=== PATIENT | male | born 1940 | race Caucasian/White ===

== ENCOUNTER 2019-08-03 14:42 | Outpatient (CLI) | payer MEDICARE | END 2019-08-03 23:59 | disposition home or self-care (01) | LOC: WOUND 14:42 | PROVIDERS: ATTEND Internal Medicine | DX: I87.331 Chronic venous hypertension (idiopathic) with ulcer and inflammation of right lower extremity (principal); L97.212 Non-pressure chronic ulcer of right calf with fat layer exposed; L03.115 Cellulitis of right lower limb; L03.116 Cellulitis of left lower limb; R60.0 Localized edema; E03.9 Hypothyroidism, unspecified; H91.90 Unspecified hearing loss, unspecified ear; I48.91 Unspecified atrial fibrillation; E66.01 Morbid (severe) obesity due to excess calories; J96.11 Chronic respiratory failure with hypoxia; Z68.41 Body mass index [BMI] 40.0-44.9, adult; Z87.891 Personal history of nicotine dependence; Z86.718 Personal history of other venous thrombosis and embolism | CPT/HCPCS: 29581; 97597; 97598 ==

== ENCOUNTER → 2020-03-19 | Outpatient (CLI) | payer MEDICARE | END | disposition home or self-care (01) | LOC: WOUND 13:34 | PROVIDERS: ATTEND Internal Medicine | DX: I87.313 Chronic venous hypertension (idiopathic) with ulcer of bilateral lower extremity (principal); L97.822 Non-pressure chronic ulcer of other part of left lower leg with fat layer exposed; L97.812 Non-pressure chronic ulcer of other part of right lower leg with fat layer exposed; E03.9 Hypothyroidism, unspecified; E66.9 Obesity, unspecified; Z87.891 Personal history of nicotine dependence; Z68.41 Body mass index [BMI] 40.0-44.9, adult | CPT/HCPCS: 97597; 97598; G0463 ==

== ENCOUNTER 2020-03-28 14:09 | Outpatient (CLI) | payer MEDICARE | END 2020-03-28 23:59 | disposition home or self-care (01) | LOC: WOUND 14:09 | PROVIDERS: ATTEND Internal Medicine | DX: I87.313 Chronic venous hypertension (idiopathic) with ulcer of bilateral lower extremity (principal); L97.822 Non-pressure chronic ulcer of other part of left lower leg with fat layer exposed; L97.812 Non-pressure chronic ulcer of other part of right lower leg with fat layer exposed; E03.9 Hypothyroidism, unspecified; E66.9 Obesity, unspecified; Z87.891 Personal history of nicotine dependence; Z68.41 Body mass index [BMI] 40.0-44.9, adult | CPT/HCPCS: 97597; 97598 ==

== ENCOUNTER → 2020-04-04 | Outpatient (CLI) | payer MEDICARE | END | disposition home or self-care (01) | LOC: WOUND 11:08 | PROVIDERS: ATTEND Internal Medicine | DX: I87.313 Chronic venous hypertension (idiopathic) with ulcer of bilateral lower extremity (principal); L97.222 Non-pressure chronic ulcer of left calf with fat layer exposed; L97.212 Non-pressure chronic ulcer of right calf with fat layer exposed; E03.9 Hypothyroidism, unspecified; I48.91 Unspecified atrial fibrillation; E66.01 Morbid (severe) obesity due to excess calories; Z68.41 Body mass index [BMI] 40.0-44.9, adult; Z87.891 Personal history of nicotine dependence; Z86.718 Personal history of other venous thrombosis and embolism; Z79.01 Long term (current) use of anticoagulants | CPT/HCPCS: 97597; 97598 ==

== ENCOUNTER → 2020-04-11 | Outpatient (CLI) | payer MEDICARE | END | disposition home or self-care (01) | LOC: WOUND 13:02 | PROVIDERS: ATTEND Internal Medicine | DX: I87.313 Chronic venous hypertension (idiopathic) with ulcer of bilateral lower extremity (principal); L97.222 Non-pressure chronic ulcer of left calf with fat layer exposed; L97.212 Non-pressure chronic ulcer of right calf with fat layer exposed; E03.9 Hypothyroidism, unspecified; I48.91 Unspecified atrial fibrillation; E66.01 Morbid (severe) obesity due to excess calories; Z68.41 Body mass index [BMI] 40.0-44.9, adult; Z87.891 Personal history of nicotine dependence; Z86.718 Personal history of other venous thrombosis and embolism; Z79.01 Long term (current) use of anticoagulants | CPT/HCPCS: 29581; 97597; 97598 ==

== ENCOUNTER → 2020-04-17 | Outpatient (CLI) | payer MEDICARE | END | disposition home or self-care (01) | LOC: CVU 07:45 | PROVIDERS: ATTEND Internal Medicine | DX: S81.801A Unspecified open wound, right lower leg, initial encounter (principal); I70.203 Unspecified atherosclerosis of native arteries of extremities, bilateral legs; X58.XXXA Exposure to other specified factors, initial encounter; Y93.89 Activity, other specified; Y92.89 Other specified places as the place of occurrence of the external cause; Y99.8 Other external cause status | CPT/HCPCS: 93922; 93925; 93970 ==

== ENCOUNTER → 2020-04-18 | Outpatient (CLI) | payer MEDICARE | END | disposition home or self-care (01) | LOC: WOUND 12:45 | PROVIDERS: ATTEND Internal Medicine | DX: I87.313 Chronic venous hypertension (idiopathic) with ulcer of bilateral lower extremity (principal); I70.242 Atherosclerosis of native arteries of left leg with ulceration of calf; L97.222 Non-pressure chronic ulcer of left calf with fat layer exposed; I70.232 Atherosclerosis of native arteries of right leg with ulceration of calf; L97.212 Non-pressure chronic ulcer of right calf with fat layer exposed; E03.9 Hypothyroidism, unspecified; I48.91 Unspecified atrial fibrillation; E66.01 Morbid (severe) obesity due to excess calories; Z68.41 Body mass index [BMI] 40.0-44.9, adult; Z87.891 Personal history of nicotine dependence; Z86.718 Personal history of other venous thrombosis and embolism; Z79.01 Long term (current) use of anticoagulants | CPT/HCPCS: 97597; 97598 ==

== ENCOUNTER 2020-04-25 13:59 | Outpatient (CLI) | payer MEDICARE | END 2020-04-25 23:59 | disposition home or self-care (01) | LOC: WOUND 13:59 | PROVIDERS: ATTEND Internal Medicine | DX: I87.313 Chronic venous hypertension (idiopathic) with ulcer of bilateral lower extremity (principal); I70.242 Atherosclerosis of native arteries of left leg with ulceration of calf; L97.222 Non-pressure chronic ulcer of left calf with fat layer exposed; I70.232 Atherosclerosis of native arteries of right leg with ulceration of calf; L97.212 Non-pressure chronic ulcer of right calf with fat layer exposed; E03.9 Hypothyroidism, unspecified; I48.91 Unspecified atrial fibrillation; E66.01 Morbid (severe) obesity due to excess calories; Z68.41 Body mass index [BMI] 40.0-44.9, adult; Z87.891 Personal history of nicotine dependence; Z86.718 Personal history of other venous thrombosis and embolism; Z79.01 Long term (current) use of anticoagulants | CPT/HCPCS: 97597; 97598 ==

== ENCOUNTER 2020-05-02 11:03 | Outpatient (CLI) | payer MEDICARE | END 2020-05-02 23:59 | disposition home or self-care (01) | LOC: WOUND 11:03 | PROVIDERS: ATTEND Internal Medicine | DX: I87.313 Chronic venous hypertension (idiopathic) with ulcer of bilateral lower extremity (principal); I70.242 Atherosclerosis of native arteries of left leg with ulceration of calf; L97.222 Non-pressure chronic ulcer of left calf with fat layer exposed; I70.232 Atherosclerosis of native arteries of right leg with ulceration of calf; L97.212 Non-pressure chronic ulcer of right calf with fat layer exposed; E03.9 Hypothyroidism, unspecified; I48.91 Unspecified atrial fibrillation; E66.01 Morbid (severe) obesity due to excess calories; Z68.41 Body mass index [BMI] 40.0-44.9, adult; Z87.891 Personal history of nicotine dependence; Z86.718 Personal history of other venous thrombosis and embolism; Z79.01 Long term (current) use of anticoagulants | CPT/HCPCS: 97597; 97598 ==

== ENCOUNTER 2020-05-09 11:00 | Outpatient (CLI) | payer MEDICARE | END 2020-05-09 23:59 | disposition home or self-care (01) | LOC: WOUND 11:00 | PROVIDERS: ATTEND Internal Medicine | DX: I87.313 Chronic venous hypertension (idiopathic) with ulcer of bilateral lower extremity (principal); I70.242 Atherosclerosis of native arteries of left leg with ulceration of calf; L97.222 Non-pressure chronic ulcer of left calf with fat layer exposed; I70.232 Atherosclerosis of native arteries of right leg with ulceration of calf; L97.212 Non-pressure chronic ulcer of right calf with fat layer exposed; E03.9 Hypothyroidism, unspecified; I48.91 Unspecified atrial fibrillation; E66.01 Morbid (severe) obesity due to excess calories; Z68.41 Body mass index [BMI] 40.0-44.9, adult; Z87.891 Personal history of nicotine dependence; Z86.718 Personal history of other venous thrombosis and embolism; Z79.01 Long term (current) use of anticoagulants | CPT/HCPCS: 97597; 97598 ==

== ENCOUNTER → 2020-05-16 | Outpatient (CLI) | payer MEDICARE | END | disposition home or self-care (01) | LOC: WOUND 13:57 | PROVIDERS: ATTEND Internal Medicine | DX: I87.313 Chronic venous hypertension (idiopathic) with ulcer of bilateral lower extremity (principal); I70.242 Atherosclerosis of native arteries of left leg with ulceration of calf; L97.222 Non-pressure chronic ulcer of left calf with fat layer exposed; I70.232 Atherosclerosis of native arteries of right leg with ulceration of calf; L97.212 Non-pressure chronic ulcer of right calf with fat layer exposed; E03.9 Hypothyroidism, unspecified; I48.91 Unspecified atrial fibrillation; E66.01 Morbid (severe) obesity due to excess calories; Z68.41 Body mass index [BMI] 40.0-44.9, adult; Z87.891 Personal history of nicotine dependence; Z86.718 Personal history of other venous thrombosis and embolism; Z79.01 Long term (current) use of anticoagulants | CPT/HCPCS: 97597; 97598 ==

== ENCOUNTER → 2020-05-23 | Outpatient (CLI) | payer MEDICARE | END | disposition home or self-care (01) | LOC: WOUND 14:16 | PROVIDERS: ATTEND Internal Medicine | DX: I87.313 Chronic venous hypertension (idiopathic) with ulcer of bilateral lower extremity (principal); I70.242 Atherosclerosis of native arteries of left leg with ulceration of calf; L97.222 Non-pressure chronic ulcer of left calf with fat layer exposed; I70.232 Atherosclerosis of native arteries of right leg with ulceration of calf; L97.212 Non-pressure chronic ulcer of right calf with fat layer exposed; E03.9 Hypothyroidism, unspecified; I48.91 Unspecified atrial fibrillation; M62.82 Rhabdomyolysis; R09.02 Hypoxemia; E66.01 Morbid (severe) obesity due to excess calories; Z68.41 Body mass index [BMI] 40.0-44.9, adult; Z87.891 Personal history of nicotine dependence; Z86.718 Personal history of other venous thrombosis and embolism; Z79.01 Long term (current) use of anticoagulants | CPT/HCPCS: 97597; 97598 ==

== ENCOUNTER → 2020-05-30 | Outpatient (CLI) | payer MEDICARE | END | disposition home or self-care (01) | LOC: WOUND 13:48 | PROVIDERS: ATTEND Internal Medicine | DX: I87.313 Chronic venous hypertension (idiopathic) with ulcer of bilateral lower extremity (principal); I70.242 Atherosclerosis of native arteries of left leg with ulceration of calf; I70.232 Atherosclerosis of native arteries of right leg with ulceration of calf; L97.222 Non-pressure chronic ulcer of left calf with fat layer exposed; L97.212 Non-pressure chronic ulcer of right calf with fat layer exposed; E03.9 Hypothyroidism, unspecified; I48.91 Unspecified atrial fibrillation; M62.82 Rhabdomyolysis; R09.02 Hypoxemia; E66.01 Morbid (severe) obesity due to excess calories; Z68.41 Body mass index [BMI] 40.0-44.9, adult; Z87.891 Personal history of nicotine dependence; Z86.718 Personal history of other venous thrombosis and embolism; Z79.01 Long term (current) use of anticoagulants | CPT/HCPCS: 97597; 97598 ==

== ENCOUNTER → 2020-06-06 | Outpatient (CLI) | payer MEDICARE | END | disposition home or self-care (01) | LOC: WOUND 13:48 | PROVIDERS: ATTEND Internal Medicine | DX: I87.313 Chronic venous hypertension (idiopathic) with ulcer of bilateral lower extremity (principal); I70.242 Atherosclerosis of native arteries of left leg with ulceration of calf; L97.222 Non-pressure chronic ulcer of left calf with fat layer exposed; I70.232 Atherosclerosis of native arteries of right leg with ulceration of calf; L97.212 Non-pressure chronic ulcer of right calf with fat layer exposed; E03.9 Hypothyroidism, unspecified; I48.91 Unspecified atrial fibrillation; M62.82 Rhabdomyolysis; R09.02 Hypoxemia; E66.01 Morbid (severe) obesity due to excess calories; Z68.41 Body mass index [BMI] 40.0-44.9, adult; Z87.891 Personal history of nicotine dependence; Z86.718 Personal history of other venous thrombosis and embolism; Z79.01 Long term (current) use of anticoagulants | CPT/HCPCS: 97597; 97598 ==

== ENCOUNTER → 2020-06-15 | Outpatient (CLI) | payer MEDICARE | END | disposition home or self-care (01) | LOC: WOUND 11:16 | PROVIDERS: ATTEND Family Medicine | DX: I87.312 Chronic venous hypertension (idiopathic) with ulcer of left lower extremity (principal); I87.331 Chronic venous hypertension (idiopathic) with ulcer and inflammation of right lower extremity; L97.222 Non-pressure chronic ulcer of left calf with fat layer exposed; L97.212 Non-pressure chronic ulcer of right calf with fat layer exposed; E03.9 Hypothyroidism, unspecified; I48.91 Unspecified atrial fibrillation; M62.82 Rhabdomyolysis; R09.02 Hypoxemia; E66.01 Morbid (severe) obesity due to excess calories; Z68.41 Body mass index [BMI] 40.0-44.9, adult; Z87.891 Personal history of nicotine dependence; Z86.718 Personal history of other venous thrombosis and embolism; Z79.01 Long term (current) use of anticoagulants | CPT/HCPCS: 29581 ==

== ENCOUNTER → 2020-06-20 | Outpatient (CLI) | payer MEDICARE | END | disposition home or self-care (01) | LOC: WOUND 11:00 | PROVIDERS: ATTEND Internal Medicine Cardiovascular Disease | DX: I87.313 Chronic venous hypertension (idiopathic) with ulcer of bilateral lower extremity (principal); I70.242 Atherosclerosis of native arteries of left leg with ulceration of calf; L97.222 Non-pressure chronic ulcer of left calf with fat layer exposed; I70.232 Atherosclerosis of native arteries of right leg with ulceration of calf; L97.212 Non-pressure chronic ulcer of right calf with fat layer exposed; E03.9 Hypothyroidism, unspecified; I48.91 Unspecified atrial fibrillation; M62.82 Rhabdomyolysis; R09.02 Hypoxemia; E66.01 Morbid (severe) obesity due to excess calories; Z68.41 Body mass index [BMI] 40.0-44.9, adult; Z87.891 Personal history of nicotine dependence; Z86.718 Personal history of other venous thrombosis and embolism; Z79.01 Long term (current) use of anticoagulants | CPT/HCPCS: 29581 ==

== ENCOUNTER → 2020-06-27 | Outpatient (CLI) | payer MEDICARE | END | disposition home or self-care (01) | LOC: WOUND 10:59 | PROVIDERS: ATTEND Internal Medicine | DX: I87.313 Chronic venous hypertension (idiopathic) with ulcer of bilateral lower extremity (principal); I70.242 Atherosclerosis of native arteries of left leg with ulceration of calf; L97.222 Non-pressure chronic ulcer of left calf with fat layer exposed; I70.232 Atherosclerosis of native arteries of right leg with ulceration of calf; L97.212 Non-pressure chronic ulcer of right calf with fat layer exposed; E03.9 Hypothyroidism, unspecified; I48.91 Unspecified atrial fibrillation; M62.82 Rhabdomyolysis; R09.02 Hypoxemia; E66.01 Morbid (severe) obesity due to excess calories; Z68.41 Body mass index [BMI] 40.0-44.9, adult; Z87.891 Personal history of nicotine dependence; Z86.718 Personal history of other venous thrombosis and embolism; Z79.01 Long term (current) use of anticoagulants | CPT/HCPCS: 97597; 97598 ==

== ENCOUNTER → 2020-07-04 | Outpatient (CLI) | payer MEDICARE | END | disposition home or self-care (01) | LOC: WOUND 10:59 | PROVIDERS: ATTEND Internal Medicine | DX: I87.313 Chronic venous hypertension (idiopathic) with ulcer of bilateral lower extremity (principal); I70.242 Atherosclerosis of native arteries of left leg with ulceration of calf; L97.222 Non-pressure chronic ulcer of left calf with fat layer exposed; I70.232 Atherosclerosis of native arteries of right leg with ulceration of calf; L97.212 Non-pressure chronic ulcer of right calf with fat layer exposed; E03.9 Hypothyroidism, unspecified; I48.91 Unspecified atrial fibrillation; M62.82 Rhabdomyolysis; R09.02 Hypoxemia; E66.01 Morbid (severe) obesity due to excess calories; Z68.41 Body mass index [BMI] 40.0-44.9, adult; Z87.891 Personal history of nicotine dependence; Z86.718 Personal history of other venous thrombosis and embolism; Z79.01 Long term (current) use of anticoagulants | CPT/HCPCS: 97597; 97598 ==

== ENCOUNTER → 2020-07-11 | Outpatient (CLI) | payer MEDICARE | END | disposition home or self-care (01) | LOC: WOUND 14:19 | PROVIDERS: ATTEND Internal Medicine | DX: I87.313 Chronic venous hypertension (idiopathic) with ulcer of bilateral lower extremity (principal); I70.242 Atherosclerosis of native arteries of left leg with ulceration of calf; L97.222 Non-pressure chronic ulcer of left calf with fat layer exposed; I70.232 Atherosclerosis of native arteries of right leg with ulceration of calf; L97.212 Non-pressure chronic ulcer of right calf with fat layer exposed; E03.9 Hypothyroidism, unspecified; I48.91 Unspecified atrial fibrillation; M62.82 Rhabdomyolysis; R09.02 Hypoxemia; E66.01 Morbid (severe) obesity due to excess calories; Z68.41 Body mass index [BMI] 40.0-44.9, adult; Z87.891 Personal history of nicotine dependence; Z86.718 Personal history of other venous thrombosis and embolism; Z79.01 Long term (current) use of anticoagulants | CPT/HCPCS: 97597; 97598 ==

== ENCOUNTER 2020-07-18 11:02 | Outpatient (CLI) | payer MEDICARE | END 2020-07-18 23:59 | disposition home or self-care (01) | LOC: WOUND 11:02 | PROVIDERS: ATTEND Internal Medicine | DX: I87.313 Chronic venous hypertension (idiopathic) with ulcer of bilateral lower extremity (principal); I70.232 Atherosclerosis of native arteries of right leg with ulceration of calf; L97.212 Non-pressure chronic ulcer of right calf with fat layer exposed; I70.242 Atherosclerosis of native arteries of left leg with ulceration of calf; L97.222 Non-pressure chronic ulcer of left calf with fat layer exposed; E03.9 Hypothyroidism, unspecified; I48.91 Unspecified atrial fibrillation; M62.82 Rhabdomyolysis; R09.02 Hypoxemia; E66.01 Morbid (severe) obesity due to excess calories; Z68.41 Body mass index [BMI] 40.0-44.9, adult; Z87.891 Personal history of nicotine dependence; Z86.718 Personal history of other venous thrombosis and embolism; Z79.01 Long term (current) use of anticoagulants | CPT/HCPCS: 97597; 97598 ==

== ENCOUNTER → 2020-07-25 | Outpatient (CLI) | payer MEDICARE | END | disposition home or self-care (01) | LOC: WOUND 12:27 | PROVIDERS: ATTEND Internal Medicine | DX: I87.313 Chronic venous hypertension (idiopathic) with ulcer of bilateral lower extremity (principal); I70.242 Atherosclerosis of native arteries of left leg with ulceration of calf; L97.222 Non-pressure chronic ulcer of left calf with fat layer exposed; I70.232 Atherosclerosis of native arteries of right leg with ulceration of calf; L97.212 Non-pressure chronic ulcer of right calf with fat layer exposed; I48.91 Unspecified atrial fibrillation; E03.9 Hypothyroidism, unspecified; M62.82 Rhabdomyolysis; R09.02 Hypoxemia; E66.01 Morbid (severe) obesity due to excess calories; Z68.41 Body mass index [BMI] 40.0-44.9, adult; Z87.891 Personal history of nicotine dependence; Z86.718 Personal history of other venous thrombosis and embolism; Z79.01 Long term (current) use of anticoagulants | CPT/HCPCS: 97597; 97598 ==

== ENCOUNTER → 2020-08-01 | Outpatient (CLI) | payer MEDICARE | END | disposition home or self-care (01) | LOC: WOUND 14:37 | PROVIDERS: ATTEND Internal Medicine | DX: I87.331 Chronic venous hypertension (idiopathic) with ulcer and inflammation of right lower extremity (principal); I70.238 Atherosclerosis of native arteries of right leg with ulceration of other part of lower leg; L97.812 Non-pressure chronic ulcer of other part of right lower leg with fat layer exposed; I70.232 Atherosclerosis of native arteries of right leg with ulceration of calf; L97.212 Non-pressure chronic ulcer of right calf with fat layer exposed; I70.242 Atherosclerosis of native arteries of left leg with ulceration of calf; I87.312 Chronic venous hypertension (idiopathic) with ulcer of left lower extremity; L97.222 Non-pressure chronic ulcer of left calf with fat layer exposed; L03.115 Cellulitis of right lower limb; E03.9 Hypothyroidism, unspecified; I48.91 Unspecified atrial fibrillation; E66.9 Obesity, unspecified; Z68.41 Body mass index [BMI] 40.0-44.9, adult; Z87.891 Personal history of nicotine dependence; Z86.718 Personal history of other venous thrombosis and embolism; Z79.01 Long term (current) use of anticoagulants | CPT/HCPCS: 97597; 97598 ==

== ENCOUNTER → 2020-08-08 | Outpatient (CLI) | payer MEDICARE | END | disposition home or self-care (01) | LOC: WOUND 11:04 | PROVIDERS: ATTEND Internal Medicine | DX: I87.333 Chronic venous hypertension (idiopathic) with ulcer and inflammation of bilateral lower extremity (principal); I70.238 Atherosclerosis of native arteries of right leg with ulceration of other part of lower leg; L97.812 Non-pressure chronic ulcer of other part of right lower leg with fat layer exposed; I70.232 Atherosclerosis of native arteries of right leg with ulceration of calf; L97.212 Non-pressure chronic ulcer of right calf with fat layer exposed; I70.242 Atherosclerosis of native arteries of left leg with ulceration of calf; L97.222 Non-pressure chronic ulcer of left calf with fat layer exposed; L03.115 Cellulitis of right lower limb; E03.9 Hypothyroidism, unspecified; I48.91 Unspecified atrial fibrillation; M62.82 Rhabdomyolysis; E66.01 Morbid (severe) obesity due to excess calories; Z68.41 Body mass index [BMI] 40.0-44.9, adult; Z87.891 Personal history of nicotine dependence; Z86.718 Personal history of other venous thrombosis and embolism; Z79.01 Long term (current) use of anticoagulants; Z86.711 Personal history of pulmonary embolism | CPT/HCPCS: 97597; 97598 ==

== ENCOUNTER → 2020-08-15 | Outpatient (CLI) | payer MEDICARE | END | disposition home or self-care (01) | LOC: WOUND 14:23 | PROVIDERS: ATTEND Internal Medicine | DX: I87.333 Chronic venous hypertension (idiopathic) with ulcer and inflammation of bilateral lower extremity (principal); I70.232 Atherosclerosis of native arteries of right leg with ulceration of calf; L97.212 Non-pressure chronic ulcer of right calf with fat layer exposed; I70.242 Atherosclerosis of native arteries of left leg with ulceration of calf; L97.222 Non-pressure chronic ulcer of left calf with fat layer exposed; L03.115 Cellulitis of right lower limb; E03.9 Hypothyroidism, unspecified; I48.91 Unspecified atrial fibrillation; M62.82 Rhabdomyolysis; E66.01 Morbid (severe) obesity due to excess calories; Z68.41 Body mass index [BMI] 40.0-44.9, adult; Z87.891 Personal history of nicotine dependence; Z86.718 Personal history of other venous thrombosis and embolism; Z86.711 Personal history of pulmonary embolism; Z79.01 Long term (current) use of anticoagulants | CPT/HCPCS: 97597; 97598 ==

== ENCOUNTER 2020-08-22 12:42 | Outpatient (CLI) | payer MEDICARE | END 2020-08-22 23:59 | disposition home or self-care (01) | LOC: WOUND 12:42 | PROVIDERS: ATTEND Internal Medicine | DX: I87.333 Chronic venous hypertension (idiopathic) with ulcer and inflammation of bilateral lower extremity (principal); I70.232 Atherosclerosis of native arteries of right leg with ulceration of calf; L97.212 Non-pressure chronic ulcer of right calf with fat layer exposed; I70.242 Atherosclerosis of native arteries of left leg with ulceration of calf; L97.222 Non-pressure chronic ulcer of left calf with fat layer exposed; L03.115 Cellulitis of right lower limb; E03.9 Hypothyroidism, unspecified; I48.91 Unspecified atrial fibrillation; M62.82 Rhabdomyolysis; E66.01 Morbid (severe) obesity due to excess calories; Z68.41 Body mass index [BMI] 40.0-44.9, adult; Z87.891 Personal history of nicotine dependence; Z86.718 Personal history of other venous thrombosis and embolism; Z86.711 Personal history of pulmonary embolism; Z79.01 Long term (current) use of anticoagulants | CPT/HCPCS: 97597; 97598 ==

== ENCOUNTER → 2020-09-05 | Outpatient (CLI) | payer MEDICARE | END | disposition home or self-care (01) | LOC: WOUND 13:47 | PROVIDERS: ATTEND Internal Medicine | DX: I87.331 Chronic venous hypertension (idiopathic) with ulcer and inflammation of right lower extremity (principal); I70.232 Atherosclerosis of native arteries of right leg with ulceration of calf; L97.212 Non-pressure chronic ulcer of right calf with fat layer exposed; I70.238 Atherosclerosis of native arteries of right leg with ulceration of other part of lower leg; L97.812 Non-pressure chronic ulcer of other part of right lower leg with fat layer exposed; L03.115 Cellulitis of right lower limb; E03.9 Hypothyroidism, unspecified; I48.91 Unspecified atrial fibrillation; M62.82 Rhabdomyolysis; E66.01 Morbid (severe) obesity due to excess calories; Z68.41 Body mass index [BMI] 40.0-44.9, adult; Z87.891 Personal history of nicotine dependence; Z86.718 Personal history of other venous thrombosis and embolism; Z86.711 Personal history of pulmonary embolism; Z79.01 Long term (current) use of anticoagulants | CPT/HCPCS: 97597; 97598 ==

== ENCOUNTER → 2020-09-12 | Outpatient (CLI) | payer MEDICARE | END | disposition home or self-care (01) | LOC: WOUND 14:52 | PROVIDERS: ATTEND Internal Medicine | DX: I87.331 Chronic venous hypertension (idiopathic) with ulcer and inflammation of right lower extremity (principal); I70.232 Atherosclerosis of native arteries of right leg with ulceration of calf; L97.212 Non-pressure chronic ulcer of right calf with fat layer exposed; I87.312 Chronic venous hypertension (idiopathic) with ulcer of left lower extremity; I70.242 Atherosclerosis of native arteries of left leg with ulceration of calf; L97.222 Non-pressure chronic ulcer of left calf with fat layer exposed; S91.002D Unspecified open wound, left ankle, subsequent encounter; S91.001D Unspecified open wound, right ankle, subsequent encounter; S81.801D Unspecified open wound, right lower leg, subsequent encounter; L03.115 Cellulitis of right lower limb; E03.9 Hypothyroidism, unspecified; I48.91 Unspecified atrial fibrillation; E66.01 Morbid (severe) obesity due to excess calories; Z68.41 Body mass index [BMI] 40.0-44.9, adult; Z86.718 Personal history of other venous thrombosis and embolism; Z86.711 Personal history of pulmonary embolism; Z87.891 Personal history of nicotine dependence; Z79.01 Long term (current) use of anticoagulants; Z79.811 Long term (current) use of aromatase inhibitors; X58.XXXD Exposure to other specified factors, subsequent encounter | CPT/HCPCS: 97597 ==

== ENCOUNTER → 2020-09-19 | Outpatient (CLI) | payer MEDICARE | END | disposition home or self-care (01) | LOC: WOUND 14:35 | PROVIDERS: ATTEND Internal Medicine | DX: I87.333 Chronic venous hypertension (idiopathic) with ulcer and inflammation of bilateral lower extremity (principal); I70.232 Atherosclerosis of native arteries of right leg with ulceration of calf; L97.212 Non-pressure chronic ulcer of right calf with fat layer exposed; I70.242 Atherosclerosis of native arteries of left leg with ulceration of calf; L97.222 Non-pressure chronic ulcer of left calf with fat layer exposed; L03.115 Cellulitis of right lower limb; E03.9 Hypothyroidism, unspecified; I48.91 Unspecified atrial fibrillation; M62.82 Rhabdomyolysis; E66.01 Morbid (severe) obesity due to excess calories; Z68.41 Body mass index [BMI] 40.0-44.9, adult; Z87.891 Personal history of nicotine dependence; Z86.718 Personal history of other venous thrombosis and embolism; Z86.711 Personal history of pulmonary embolism; Z79.01 Long term (current) use of anticoagulants | CPT/HCPCS: 29581 ==

== ENCOUNTER → 2020-09-26 | Outpatient (CLI) | payer MEDICARE | END | disposition home or self-care (01) | LOC: WOUND 14:22 | PROVIDERS: ATTEND Internal Medicine | DX: I87.333 Chronic venous hypertension (idiopathic) with ulcer and inflammation of bilateral lower extremity (principal); I70.232 Atherosclerosis of native arteries of right leg with ulceration of calf; L97.212 Non-pressure chronic ulcer of right calf with fat layer exposed; I70.242 Atherosclerosis of native arteries of left leg with ulceration of calf; L97.222 Non-pressure chronic ulcer of left calf with fat layer exposed; L03.115 Cellulitis of right lower limb; E03.9 Hypothyroidism, unspecified; I48.91 Unspecified atrial fibrillation; M62.82 Rhabdomyolysis; E66.01 Morbid (severe) obesity due to excess calories; Z68.41 Body mass index [BMI] 40.0-44.9, adult; Z87.891 Personal history of nicotine dependence; Z86.718 Personal history of other venous thrombosis and embolism; Z86.711 Personal history of pulmonary embolism; Z79.01 Long term (current) use of anticoagulants | CPT/HCPCS: G0463 ==

== ENCOUNTER → 2020-10-26 | Outpatient (CLI) | payer MEDICARE | END | disposition home or self-care (01) | LOC: CVU 14:38 | PROVIDERS: ATTEND Internal Medicine | DX: I35.8 Other nonrheumatic aortic valve disorders (principal); I50.9 Heart failure, unspecified; R06.00 Dyspnea, unspecified | CPT/HCPCS: 93306 ==

== ENCOUNTER 2020-11-12 13:21 | Outpatient (CLI) | payer MEDICARE | END 2020-11-12 23:59 | disposition home or self-care (01) | LOC: WOUND 13:21 | PROVIDERS: ATTEND Internal Medicine | DX: I87.333 Chronic venous hypertension (idiopathic) with ulcer and inflammation of bilateral lower extremity (principal); I70.232 Atherosclerosis of native arteries of right leg with ulceration of calf; L97.212 Non-pressure chronic ulcer of right calf with fat layer exposed; I70.242 Atherosclerosis of native arteries of left leg with ulceration of calf; L97.222 Non-pressure chronic ulcer of left calf with fat layer exposed; I70.238 Atherosclerosis of native arteries of right leg with ulceration of other part of lower leg; L97.811 Non-pressure chronic ulcer of other part of right lower leg limited to breakdown of skin; L03.115 Cellulitis of right lower limb; E03.9 Hypothyroidism, unspecified; I48.91 Unspecified atrial fibrillation; M62.82 Rhabdomyolysis; L84 Corns and callosities; E66.01 Morbid (severe) obesity due to excess calories; Z68.43 Body mass index [BMI] 50.0-59.9, adult; Z87.891 Personal history of nicotine dependence; Z86.718 Personal history of other venous thrombosis and embolism; Z86.711 Personal history of pulmonary embolism; Z79.01 Long term (current) use of anticoagulants | CPT/HCPCS: 29581; 97597; 97598; G0463 ==

== ENCOUNTER → 2020-11-28 | Outpatient (CLI) | payer MEDICARE | END | disposition home or self-care (01) | LOC: WOUND 13:57 | PROVIDERS: ATTEND Internal Medicine | DX: I87.333 Chronic venous hypertension (idiopathic) with ulcer and inflammation of bilateral lower extremity (principal); I70.232 Atherosclerosis of native arteries of right leg with ulceration of calf; L97.212 Non-pressure chronic ulcer of right calf with fat layer exposed; I70.242 Atherosclerosis of native arteries of left leg with ulceration of calf; L97.222 Non-pressure chronic ulcer of left calf with fat layer exposed; I70.238 Atherosclerosis of native arteries of right leg with ulceration of other part of lower leg; L97.811 Non-pressure chronic ulcer of other part of right lower leg limited to breakdown of skin; L03.115 Cellulitis of right lower limb; E03.9 Hypothyroidism, unspecified; I48.91 Unspecified atrial fibrillation; M62.82 Rhabdomyolysis; L84 Corns and callosities; R60.1 Generalized edema; I11.0 Hypertensive heart disease with heart failure; I50.9 Heart failure, unspecified; E66.01 Morbid (severe) obesity due to excess calories; Z68.43 Body mass index [BMI] 50.0-59.9, adult; Z87.891 Personal history of nicotine dependence; Z86.718 Personal history of other venous thrombosis and embolism; Z86.711 Personal history of pulmonary embolism; Z79.01 Long term (current) use of anticoagulants | CPT/HCPCS: 97597; 97598 ==

== ENCOUNTER → 2020-12-05 | Outpatient (CLI) | payer MEDICARE | END | disposition home or self-care (01) | LOC: WOUND 10:53 | PROVIDERS: ATTEND Internal Medicine | DX: I87.333 Chronic venous hypertension (idiopathic) with ulcer and inflammation of bilateral lower extremity (principal); I70.232 Atherosclerosis of native arteries of right leg with ulceration of calf; L97.212 Non-pressure chronic ulcer of right calf with fat layer exposed; I70.242 Atherosclerosis of native arteries of left leg with ulceration of calf; L97.222 Non-pressure chronic ulcer of left calf with fat layer exposed; I70.238 Atherosclerosis of native arteries of right leg with ulceration of other part of lower leg; L97.811 Non-pressure chronic ulcer of other part of right lower leg limited to breakdown of skin; L03.115 Cellulitis of right lower limb; E03.9 Hypothyroidism, unspecified; I48.91 Unspecified atrial fibrillation; M62.82 Rhabdomyolysis; L84 Corns and callosities; R60.1 Generalized edema; I11.0 Hypertensive heart disease with heart failure; I50.9 Heart failure, unspecified; E66.01 Morbid (severe) obesity due to excess calories; Z68.43 Body mass index [BMI] 50.0-59.9, adult; Z87.891 Personal history of nicotine dependence; Z86.718 Personal history of other venous thrombosis and embolism; Z86.711 Personal history of pulmonary embolism; Z79.01 Long term (current) use of anticoagulants | CPT/HCPCS: 97597; 97598 ==

== ENCOUNTER 2020-12-12 10:59 | Outpatient (CLI) | payer MEDICARE | END 2020-12-12 23:59 | disposition home or self-care (01) | LOC: WOUND 10:59 | PROVIDERS: ATTEND Internal Medicine | DX: I87.333 Chronic venous hypertension (idiopathic) with ulcer and inflammation of bilateral lower extremity (principal); I70.232 Atherosclerosis of native arteries of right leg with ulceration of calf; L97.212 Non-pressure chronic ulcer of right calf with fat layer exposed; I70.242 Atherosclerosis of native arteries of left leg with ulceration of calf; L97.222 Non-pressure chronic ulcer of left calf with fat layer exposed; I70.238 Atherosclerosis of native arteries of right leg with ulceration of other part of lower leg; L97.811 Non-pressure chronic ulcer of other part of right lower leg limited to breakdown of skin; L03.115 Cellulitis of right lower limb; E03.9 Hypothyroidism, unspecified; I48.91 Unspecified atrial fibrillation; M62.82 Rhabdomyolysis; L84 Corns and callosities; R60.1 Generalized edema; I11.0 Hypertensive heart disease with heart failure; I50.9 Heart failure, unspecified; E66.01 Morbid (severe) obesity due to excess calories; Z68.43 Body mass index [BMI] 50.0-59.9, adult; Z87.891 Personal history of nicotine dependence; Z86.718 Personal history of other venous thrombosis and embolism; Z86.711 Personal history of pulmonary embolism; Z79.01 Long term (current) use of anticoagulants | CPT/HCPCS: 97597; 97598 ==

== ENCOUNTER → 2020-12-19 | Outpatient (CLI) | payer MEDICARE | END | disposition home or self-care (01) | LOC: WOUND 08:44 | PROVIDERS: ATTEND Internal Medicine | DX: I87.333 Chronic venous hypertension (idiopathic) with ulcer and inflammation of bilateral lower extremity (principal); I70.232 Atherosclerosis of native arteries of right leg with ulceration of calf; L97.212 Non-pressure chronic ulcer of right calf with fat layer exposed; I70.242 Atherosclerosis of native arteries of left leg with ulceration of calf; L97.222 Non-pressure chronic ulcer of left calf with fat layer exposed; I70.238 Atherosclerosis of native arteries of right leg with ulceration of other part of lower leg; L97.811 Non-pressure chronic ulcer of other part of right lower leg limited to breakdown of skin; L03.115 Cellulitis of right lower limb; E03.9 Hypothyroidism, unspecified; I48.91 Unspecified atrial fibrillation; M62.82 Rhabdomyolysis; L84 Corns and callosities; R60.1 Generalized edema; I11.0 Hypertensive heart disease with heart failure; I50.9 Heart failure, unspecified; E66.01 Morbid (severe) obesity due to excess calories; Z68.43 Body mass index [BMI] 50.0-59.9, adult; Z87.891 Personal history of nicotine dependence; Z86.718 Personal history of other venous thrombosis and embolism; Z86.711 Personal history of pulmonary embolism; Z79.01 Long term (current) use of anticoagulants | CPT/HCPCS: 97597 ==

== ENCOUNTER → 2020-12-31 | Outpatient (CLI) | payer MEDICARE | END | disposition home or self-care (01) | LOC: WOUND 09:33 | PROVIDERS: ATTEND Internal Medicine | DX: I87.333 Chronic venous hypertension (idiopathic) with ulcer and inflammation of bilateral lower extremity (principal); I70.232 Atherosclerosis of native arteries of right leg with ulceration of calf; L97.212 Non-pressure chronic ulcer of right calf with fat layer exposed; I70.242 Atherosclerosis of native arteries of left leg with ulceration of calf; L97.222 Non-pressure chronic ulcer of left calf with fat layer exposed; I70.238 Atherosclerosis of native arteries of right leg with ulceration of other part of lower leg; L97.811 Non-pressure chronic ulcer of other part of right lower leg limited to breakdown of skin; L03.115 Cellulitis of right lower limb; E03.9 Hypothyroidism, unspecified; I48.91 Unspecified atrial fibrillation; M62.82 Rhabdomyolysis; L84 Corns and callosities; R60.1 Generalized edema; I11.0 Hypertensive heart disease with heart failure; I50.9 Heart failure, unspecified; E66.01 Morbid (severe) obesity due to excess calories; Z68.43 Body mass index [BMI] 50.0-59.9, adult; Z87.891 Personal history of nicotine dependence; Z86.718 Personal history of other venous thrombosis and embolism; Z86.711 Personal history of pulmonary embolism; Z79.01 Long term (current) use of anticoagulants | CPT/HCPCS: 97597 ==

== ENCOUNTER 2021-02-13 12:37 | Outpatient (CLI) | payer MEDICARE | END 2021-02-13 23:59 | disposition home or self-care (01) | LOC: WOUND 12:37 | PROVIDERS: ATTEND Internal Medicine | DX: I87.333 Chronic venous hypertension (idiopathic) with ulcer and inflammation of bilateral lower extremity (principal); I70.238 Atherosclerosis of native arteries of right leg with ulceration of other part of lower leg; L97.811 Non-pressure chronic ulcer of other part of right lower leg limited to breakdown of skin; I70.232 Atherosclerosis of native arteries of right leg with ulceration of calf; L97.212 Non-pressure chronic ulcer of right calf with fat layer exposed; I70.242 Atherosclerosis of native arteries of left leg with ulceration of calf; L97.222 Non-pressure chronic ulcer of left calf with fat layer exposed; R60.1 Generalized edema; L03.115 Cellulitis of right lower limb; E03.9 Hypothyroidism, unspecified; I48.91 Unspecified atrial fibrillation; M62.82 Rhabdomyolysis; L84 Corns and callosities; I11.0 Hypertensive heart disease with heart failure; I50.9 Heart failure, unspecified; E66.01 Morbid (severe) obesity due to excess calories; Z68.43 Body mass index [BMI] 50.0-59.9, adult; Z87.891 Personal history of nicotine dependence; Z86.718 Personal history of other venous thrombosis and embolism; Z86.711 Personal history of pulmonary embolism; Z79.01 Long term (current) use of anticoagulants | CPT/HCPCS: 29581; 97597 ==

== ENCOUNTER 2021-02-18 13:40 | Outpatient (CLI) | payer MEDICARE | END 2021-02-18 23:59 | disposition home or self-care (01) | LOC: WOUND 13:40 | PROVIDERS: ATTEND Internal Medicine | DX: I87.312 Chronic venous hypertension (idiopathic) with ulcer of left lower extremity (principal); I70.242 Atherosclerosis of native arteries of left leg with ulceration of calf; L97.222 Non-pressure chronic ulcer of left calf with fat layer exposed; I87.331 Chronic venous hypertension (idiopathic) with ulcer and inflammation of right lower extremity; I70.232 Atherosclerosis of native arteries of right leg with ulceration of calf; L97.212 Non-pressure chronic ulcer of right calf with fat layer exposed; R60.1 Generalized edema; L84 Corns and callosities; E03.9 Hypothyroidism, unspecified; J44.9 Chronic obstructive pulmonary disease, unspecified; I11.0 Hypertensive heart disease with heart failure; I50.9 Heart failure, unspecified; E66.01 Morbid (severe) obesity due to excess calories; I48.91 Unspecified atrial fibrillation; Z68.43 Body mass index [BMI] 50.0-59.9, adult; Z86.718 Personal history of other venous thrombosis and embolism; Z86.711 Personal history of pulmonary embolism; Z87.891 Personal history of nicotine dependence | CPT/HCPCS: G0463 ==